=== PATIENT | male | born 2000 | race Two or more races ===

== ENCOUNTER 2024-11-27 04:27 | Emergency (ER) | payer MEDICAID, SELFPAY ==
[2024-11-27 04:29] VITALS: PULSE 94; O2SAT 99; BMI 21.5
[2024-11-27 04:30] VITALS: BP 139/84; PULSE 90; RESP 18; TEMP 36.9; O2SAT 98
--- NOTE | 2024-11-27 04:44 | PD.EDRME ---
Rapid Medical Screening Exam [facility] Arrival date/time: 11/27/24 04:27 24M with history of psych/drug use presents to ED with epigastric pain. Patient had been fasting for the past few days for spiritual reasons. Patient just smoked a lot marijuana prior to arrival. Chief Complaint: Abdominal Pain Vital signs: Vital Signs Temperature 98.4 F 11/27/24 04:30 Pulse Rate 90 11/27/24 04:30 Respiratory Rate 18 11/27/24 04:30 Blood Pressure 139/84 H 11/27/24 04:30 Pulse Oximetry (%) 98 11/27/24 04:30 Oxygen Delivery Method Room Air 11/27/24 04:30
--- NOTE | 2024-11-27 05:27 | PC.NURSE ---
Addendum entered by Teresita Resendiz RN 11/27/24 05:30: PT STATES HE ALREADY TOOK THE SAME MEDICATIONS AT HOME. Original Note: PT REFUSING MEDICATIONS ORDERED BY PROVIDER. PROVIDER ARMIJO MADE AWARE.
[2024-11-27 05:58] LABS: Collection Type, Urine Clean Catch; Squamous Epithelial Cell,Urine 0 /hpf (0-5)
[2024-11-27 06:14] LABS: Basophils % (Auto) 1 % (0-2.5); Eosinophils % (Auto) 0 % (0-10); Hematocrit 46.1 % (41.0-53.0); Hemoglobin 16.2 g/dL (13.5-16.0); Immature Granulocytes % (Auto) 0 % (0-0); Immature Granulocytes Auto 0.02 Thou/mm3 (0.00-0.00); Lymphocytes # (Auto) 1.5 Thou/mm3 (1.0-4.8); Lymphocytes % (Auto) 21 % (10-50); Mean Corpuscular HGB Conc 35.1 g/dl (31.0-37.0); Mean Corpuscular Hemoglobin 31.5 pg (25.0-35.0); Mean Corpuscular Volume 90 fL (80-100); Monocytes # (Auto) 0.9 Thou/mm3 (0.0-0.8); Monocytes % (Auto) 14 % (0-12); Neutrophils # (Auto) 4.4 Thou/mm3 (1.8-7.7); Neutrophils % (Auto) 64 % (37-80); Nucleated Red Blood Cell % 0 /100 WBC (0); Platelet Count 243 Thou/mm3 (140-440); RDW Standard Deviation 41.9 fL (35.1-43.9); Red Blood Count 5.14 Miln/mm3 (4.50-5.90); White Blood Count 6.8 Thou/mm3 (3.8-10.6)
[2024-11-27 06:15] LABS: Amphetamine/Methamp Scrn,U Negative (Negative); Barbiturate Screen,Urine Negative (Negative); Benzodiazepines Screen,Urine Negative (Negative); Benzoylecgonine Screen, Ur Negative (Negative); Fentanyl Screen,Urine Negative (Negative); Opiate Screen,Urine Negative (Negative); THC Screen,Urine Positive (Negative)
[2024-11-27 06:41] LABS: Alanine Aminotransferase 63 U/L (10-49); Albumin, Serum 5.4 gm/dL (3.5-5.0); Albumin/Globulin Ratio 2.3 (1.2-2.2); Alcohol, Blood Medical < 3.0 mg/dL (0-10.0); Alkaline Phosphatase 77 U/L (46-116); Anion Gap 10 (7-16); Aspartate Amino Transferase 91 U/L (0-34); BUN/Creatinine Ratio 17 Ratio (12-20); Bilirubin,Total 0.7 mg/dL (0.3-1.2); Blood Urea Nitrogen 22 mg/dL (9-23); Calcium 9.8 mg/dL (8.3-10.6); Calcium (Corrected) 9.8 mg/dL (8.5-10.1); Chloride 103 mMol/L (98-107); Creatinine (Component) 1.3 mg/dL (0.6-1.3); Estimated Creatinine Clearance 80.7 mL/min (>60); Globulin 2.3 gm/dL (2.3-3.5); Glucose 127 mg/dL (74-106); Lipase 66 U/L (12-53); Osmolality,Calculated 284 (275-295); Potassium 3.8 mMol/L (3.4-5.1); Sodium 140 mMol/L (136-145); Total Protein 7.7 gm/dL (5.7-8.2); eGFR > 60 See Note
[2024-11-27 06:49] LABS: Bilirubin,Urine Negative (Negative); Blood,Urine Negative (Negative); Clarity,Urine Clear (Clear/Hazy); Color,Urine Yellow (Lt Yel-Yel); Culture Indicated,Urine Not Indicated; Glucose, Urine Negative (Negative); Hyaline Casts,Urine < 1 /hpf (0-1); Ketones,Urine 3+ (Negative); Leukocyte Esterase,Urine Negative (Negative); Nitrite,Urine Negative (Negative); Protein,Urine 1+ (Neg - Trace); RBC,Urine 2 /hpf (0-3); Specific Gravity,Urine 1.035 (1.001-1.035); Urobilinogen,Urine Negative mg/dL (0.0-1.0); WBC,Urine 3 /hpf (0-5)
--- NOTE | 2024-11-27 07:55 | XR_ITS ---
Examination: Abdomen sonogram, Limited Date and time of exam: 11/27/2024, 8:32 AM INDICATION: Epigastric pain Technique: Real-time de jesus scale transabdominal sonographic images of the upper abdomen obtained. Findings: Liver measures 15.4 cm and is normal echogenicity and size. No focal masses. Gallbladder is within normal limits. No evidence of cholelithiasis, or gallbladder wall thickening. Normal common bile duct. Pancreatic head appears unremarkable. Normal hepatopedal flow in the portal vein. IVC is patent Impression: No evidence of colon lithiasis or cholecystitis.
[2024-11-27 07:58] VITALS: BP 134/73; PULSE 76; RESP 16; TEMP 36.9; O2SAT 99
--- NOTE | 2024-11-27 12:47 | EDNOTE_ITS ---
<Statement entered by Komal Brandt MD - 11/28/24 15:23> As co-signing physician, I was present and available for consult prn. I concur with the plan and care as documented by the midlevel provider. ED Abdominal Pain RME/HPI General Chief Complaint: Abdominal Pain Stated complaint: ABDOMINAL PAIN Time seen by provider: 11/27/24 12:26 Arrival date/time: 11/27/24 04:27 RME / HPI RME / HPI narrative: 24-year-old male patient with significant history of psych, drug use, presents to the emergency room for evaluation regarding epigastric pain. According to the patient's been passing for 4 days, for the past. For reasons, and started to eat. Patient also smoked marijuana prior to arrival. Patient suddenly developed epigastric pain described as sharp pain, severity moderate. Denies any fever denies any other complaints no medications taken prior travel. Related Data Home Medications ?Medication ?Instructions ?Recorded ?Confirmed atomoxetine 25 mg capsule 50 mg PO QDAY 03/26/2203/26 olanzapine 2.5 mg tablet 2.5 mg PO QPM 03/26/2203/26 olanzapine 5 mg tablet 5 mg PO QPM 03/26/22 2 sertraline 100 mg tablet 200 mg PO QDAY 03/26/2205/09 Previous Rx's ?Medication ?Instructions ?Recorded ondansetron HCl 4 mg tablet 4 mg PO Q8H PRN nausea and 11/27/24 vomiting 5 days #20 tabs pantoprazole 40 mg tablet,delayed 40 mg PO QDAY #20 ta bs 11/27/24 release (Protonix) Allergies Allergy/AdvReac Type Severity Reaction Status Date / Time No Known Allergies Allergy Verified 03/26/22 08:19 Review of Systems Review of Systems Narrative Review of Systems: Review of system reviewed and within normal limits except mentioned in HPI ED Exam Narrative Physical exam: VITAL SIGNS: Reviewed. GENERAL APPEARANCE: Alert and interactive, follows commands, no acute distress, HEAD AND FACE: Non-traumatic. ENT: PERRL, pink conjunctivitis, eyelid no trauma, Mucous membrane moist. NECK: Supple, nontender, no nuchal rigidity. CHEST: No tenderness, no crepitus, no paradoxical movement, no retractions. LUNGS: Clear, well ventilated, symmetric, no rales, no wheezing, no ronchi, no stridor, good breath sounds bilaterally. HEART: Regular rate, regular rhythm, no murmur, no gallops. ABDOMEN: Soft, positive bowel sounds, nondistended, no guarding, epigastric tenderness, no rebound, no masses, RECTAL: Deferred. GENITAL: Deferred. NEUROLOGICAL: Gross motor function intact sensory function intact, Appropriate for age. MUSCULOSKELETAL: low back nontender, full range of motion. EXTREMITIES: Nontender, full range of motion. SKIN: Color pink, dry, no rash, no lacerations, no abrasions, no contusions. LYMPHATICS: Deferred. Course Quality Measures none Orders Category Date Time Status US abdomen limited Stat Exams 11/27/24 07:55 Completed Alcohol, Blood Medical Stat Lab 11/27/24 05:41 Completed CBC Stat Lab 11/27/24 05:41 Completed CMP [Comprehensive Metabolic Panel] Stat Lab 11/27/24 05:41 Completed Drug Screen,Urine Stat Lab 11/27/24 05:48 Completed Lipase Stat Lab 11/27/24 05:41 Completed Urinalysis, C/S if Indicated Stat Lab 11/27/24 05:48 Completed Acetaminophen Tab [Tylenol ES Tab] Med 11/27/24 04:41 Discontinued 1,000 mg PO X1 ONE Dicyclomine [Bentyl] Med 11/27/24 12:45 Discontinued 20 mg PO X1 ONE Famotidine [Pepcid] Med 11/27/24 04:41 Discontinued 40 mg PO X1 ONE Pantoprazole [Protonix] Med 11/27/24 12:45 Discontinued 40 mg PO X1 ONE mg Hyd/Al Hyd/Amador Susp [Maalox Susp] Med 11/27/24 04:41 Discontinued 30 ml PO X1 ONE Vital Signs Vital signs: Vital Signs Temperature 98.4 F 11/27/24 04:30 Pulse Rate 90 11/27/24 04:30 Respiratory Rate 18 11/27/24 04:30 Blood Pressure 139/84 H 11/27/24 04:30 Pulse Oximetry (%) 98 11/27/24 04:30 Oxygen Delivery Method Room Air 11/27/24 04:30 Abdominal Pain MDM MDM Narrative MDM Narrative:: 24-year-old male patient with significant history of psych, drug use, presents to the emergency room for evaluation regarding epigastric pain. According to the patient's been passing for 4 days, for the past. For reasons, and started to eat. Patient also smoked marijuana prior to arrival. Patient suddenly developed epigastric pain described as sharp pain, severity moderate. Denies any fever denies any other complaints no medications taken prior travel. Patient's workup all came back unremarkable except positive for marijuana. Ultrasound of the gallbladder came back unremarkable. Prior to discharge, patient reported significant improvement of symptoms. Patient was advised to stop smoking marijuana which could be the reason for his symptoms. Patient agrees with the plan Patient data External records reviewed:: None Clinical information provided by:: family Social determinants that could affect healthcare access:: substance use Patient has the following chronic illnesses:: Marijuana abuse How is presenting disease/condition affected by chronic disease/condition?: exacerbated by Evaluation data The following diagnostics were reviewed and interpreted by me:: lab results and radiology exam(s) Lab and/or radiology exams considered but not ordered:: None Interpretation Summary: See results in MDM Medications / Prescriptions Medications or Prescriptions considered but not ordered:: None Medication administrations:: Medication Administration History Discontinued Medications Acetaminophen (Acetaminophen 500 Mg Tablet) 1,000 mg PO X1 ONE Stop: 11/27/24 04:42 Last Admin: 11/27/24 05:29 Dose: Not Given Documented By: RC Non-Admin Reason: Patient Refused Al Hydrox/Mg Hydrox/Simethicone (Mg Hyd/Al Hyd/Amador (Maalox Reg) Susp 30 Ml Udc) 30 ml PO X1 ONE Stop: 11/27/24 04:42 Last Admin: 11/27/24 05:29 Dose: Not Given Documented By: RC Non-Admin Reason: Patient Refused Dicyclomine HCl (Dicyclomine 10 Mg Capsule) 20 mg PO X1 ONE Stop: 11/27/24 12:46 Famotidine (Famotidine 20 Mg Tablet) 40 mg PO X1 ONE Stop: 11/27/24 04:42 Last Admin: 11/27/24 05:29 Dose: Not Given Documented By: RC Non-Admin Reason: Patient Refused Pantoprazole Sodium (Pantoprazole 40 Mg Tablet) 40 mg PO X1 ONE Stop: 11/27/24 12:46 Bentyl Protonix Pepcid and Maalox Consultations Consultation(s) initiated? (list below): No Diagnosis Differential diagnosis abdominal pain: gastroenteritis and pancreatitis Most likely diagnosis given after review of the tests above:: Gastritis Admission Indicated Admission indicated?: not indicated Admission Request Was there a request for admission?: No Disposition Plan Disposition Plan: Discharge Discharge Attestation Discharge Attestation: The patient and all family members were given an opportunity to ask questions and understood the discharge instructions. Discharge instructions specifically effects, indications for sooner follow up or return to the emergency department, and the expected course of current diagnosis. Patient condition: Stable Discharge Plan Plan Patient Disposition: HOME (Self Care) Disposition Comment: Stable Prescriptions/Referrals Prescriptions/Med Rec: New pantoprazole [Protonix] 40 mg tablet,delayed release (DR/EC) 40 mg PO QDAY Qty: 20 0RF ondansetron HCl 4 mg tablet 4 mg PO Q8H PRN (Reason: nausea and vomiting) 5 Days Qty: 20 0RF No Action sertraline 100 mg Tablet 200 mg PO QDAY olanzapine 5 mg Tablet 5 mg PO QPM olanzapine 2.5 mg Tablet 2.5 mg PO QPM atomoxetine 25 mg Capsule 50 mg PO QDAY Referrals: No Primary/Family,Physician [Primary Care Provider] - In 1 week Problem List Clinical Impression: Gastritis Patient/Caregiver Discharge Instructions Discharge Activity: activity as tolerated Education Materials: ED Gastritis (Adult) Additional Instructions: Thank you for the opportunity for serving you today. You are stable for discharged . You are advised to: Follow-up with your PCP in 1 to 2 days Return to ED for worsening of symptoms Increase oral fluids Take medication as prescribed Print Language: Ghanaian Stand Alone Forms: Imelda Award Info., Patient Portal Info Letter SHELLEY/AJIT Supervising Physician SHELLEY/AJIT Supervising Physician: MD Rikki
[2024-11-27] MEDS: DICYCLOMINE 10 MG CAPSULE 20 MG PO (13:35)
[2024-11-27] MEDS: PANTOPRAZOLE 40 MG TABLET PO (13:35)
== END 2024-11-27 13:42 | disposition home or self-care (01) ==
PROVIDERS: Physician Assistant; Emergency Provider Emergency Medicine
DX: K29.70 Gastritis, unspecified, without bleeding (principal)
CPT/HCPCS: 36415; 76705; 80053; 80307; 80320; 81001; 83690; 85025; 99284; A9270; G0480